=== PATIENT | male | born 1980 | race African-American/Black ===

== ENCOUNTER 2021-07-13 09:51 | Outpatient (CLI) | payer BC, SELFPAY ==
--- NOTE | ~2021-07-13 | XR_ITS ---
XR sacrum coccyx min 2V DATE: 07/13/2021 10:15 INDICATION: Low back pain TECHNIQUE: AP, angled AP and lateral views of sacrum and coccyx COMPARISON: None FINDINGS: No fracture or bone destruction of the sacrum or coccyx is evident. Normal alignment at the pubic symphysis and sacroiliac joints. IMPRESSION: Negative Reviewed, dictated and finalized at location A. IMPRESSION: Negative
== END 2021-07-13 09:52 ==
PROVIDERS: PCP Nurse Practitioner Family; Visit Provider Nurse Practitioner Family
DX: M54.50 Low back pain, unspecified (principal)
CPT/HCPCS: 72220

== ENCOUNTER 2021-08-13 01:40 | Day surgery (SDC) | payer BC, SELFPAY ==
[2021-08-06 09:09] VITALS: BMI 34.0
--- NOTE | 2021-08-06 09:19 | PC.NURSE ---
Report to the Outpatient Waiting Room, entrance under the green pavilion located off [facility], at time 1000 on date 08/13/21. OR Time: 1200. - You and your visitor will be asked a series of questions to screen for COVID 19 for your protection. - A mask is required within the hospital. - Only one visitor is allowed at this time. Patient visitors will be guided where to wait when not with patient. Preoperative COVID Testing Requirements: No COVID Test needed if: (proof is required; if not received patient will have Rapid Test prior to entry) - Patient has received COVID Vaccine at least 14 days prior to procedure date or - Patient has positive COVID test result within last 90 days of surgery date. COVID Test needed if above criteria is not met If not COVID vaccinated a COVID test must be conducted within 72 hours of surgery and patient is asked to isolate self from time of testing until procedure. You will go to the [facility] for your COVID testing. The [facility] site is located at the corner of [address] [facility]. You will only be called if COVID results are positive and your surgeon may reschedule your elective surgery date. Patients may have clear liquids (water, carbonated beverages, clear teas, apple juice) until 3 hours prior to surgery with a maximum of 20 ounces. - No food from midnight until time of surgery - Infants may have breast milk until 4 hours before surgery, infant formula 6 hours prior to surgery. - Children will be allowed to drink immediately following surgery. If applicable, please bring a bottle or sippy cup to assist with drinking. Juice, water, soda, and popsicles are readily available. For infants on formula, please bring formula the day of surgery. Pacifiers are allowed. Take the following medications with a SIP of water the morning of surgery: N/A Medications to discontinue per physician: N/A Date to take last dose: N/A Please no make-up, nail malay, hairspray, perfume, deodorant, or body powder the day of surgery. No jewelry (including any body piercings) or valuables the day of surgery, leave them at home. Please take a shower or bath the night before, or the morning of, surgery with an antibacterial soap. Wear comfortable, loose fitting clothing. Children are encouraged to wear pajamas. - Jewelry must be removed prior to entering the operating room. Rings and piercings that are not removed may be cut off. - The hospital will not accept responsibility for valuables. - Please leave all valuables, including medications, at home the day of surgery. If you are going home after surgery, a licensed route delivery driver must drive you home. - NO public transportation without another adult. - We recommend that an adult stay with you for 24 hours following discharge. - We also recommend that you do not drive, make important decision, drink alcoholic beverages, or take any drugs that were not prescribed by your health care provider for at least 24 hours after your discharge time. For Pediatric surgeries, we recommend two adults accompany the child home (only one inside the building at this time). Follow any additional instructions given to you from your surgeon. Telephone instructions given to KAYLEE SINGER and asked if any additional questions and then verbalized understanding. Patient advised to call surgeon office or pre surgery nurse liaison [phone] if any additional questions.
[2021-08-13] VITALS (10 sets, daily range): BP systolic 103–140; BP diastolic 61–88; PULSE 56–77; RESP 14–20; TEMP 36.4; O2SAT 94–100
[2021-08-13] MEDS: LACTATED RINGERS 1,000 ML 30 ML IV CONT ×2 (10:45→14:15)
[2021-08-13] MEDS: KETOROLAC 15 MG/ML VIAL (*BKC) IV PUSH (10:45)
[2021-08-13] MEDS: ACETAMINOPHEN 500 MG TABLET 1000 MG PO (10:45)
--- NOTE | 2021-08-13 11:29 | P.PNAN_ITS ---
Anes - Initial Pre Proc Eval Procedure: Operation Date: 08/13/21 12:00 Proposed Procedures p Laparoscopic Umbilical Hernia Repair with Mesh, DaVinci Assisted - Matthew Pizano DO Date/Time: 08/13/21 11:29 Surgeon: Matthew Pizano DO Pre Op Diagnosis: Umbilical Hernia Patient Data Age: 41 Gender: M Height: 1.83 m Weight: 113.3 kg Last Vital Signs Temp 36.4 C L 08/13/21 10:29 Pulse 76 08/13/21 10:29 Resp 18 08/13/21 10:29 BP 133/88 08/13/21 10:29 Pulse Ox 98 08/13/21 10:29 Allergies Allergy/AdvReac Type Severity Reaction Status Date / Time No Known Allergies Allergy Mild Verified 08/13/21 10:25 Home Medications Medication Instructions Recorded Confirmed Type cetirizine [Zyrtec] 10 mg PO DAILY 08/06/21 08/13/21 History Patient hx anesthesia problems: none Family hx anesthesia problems: none Results Review: All pre-operative results and documents have been reviewed as part of the pre-operative evaluation. [facility] Family History Family History Mother Diabetes mellitus Grandparent Alcoholism Social History Social History Smoking status: Never smoker Alcohol intake: never Substance use: never Substance use type: does not use Living arrangements: with family Spiritual care concerns: Yes (NO BLOOD PRODUCTS) Anes - Eval Final PreProcedure Day of Procedure 08/13/21 11:29 Patient weight: overweight Heart: regular rate and rhythm Lungs: clear to auscultation Airway: Mallampati scale class II Neurological: alert and oriented Last oral intake: >/= 8 hours ASA classification: III Emergent: no Anesthetic plan: proceed Anesthesia type and monitoring: general ETT and standard monitoring Results Review: All pre-operative results and documents have been reviewed as part of the pre-operative evaluation. Informed Consent: The patient's anesthetic plan and its attendant risks and benefits were discussed with the patient/family/POA. Questions were solicited and answers provided to the satisfaction of the patient/family/POA.
--- NOTE | 2021-08-13 11:47 | WPDHPUPDATE1 ---
History and Physical Update Update Date/Time: 08/13/21 11:47 History and Physical has been reviewed, including an updated exam of the patient. There are NO changes in the patient's condition. Risks, benefits, and alternatives have been discussed and questions answered. Patient agrees to proceed with procedure.
[2021-08-13] MEDS: ceFAZolin 2 GM/D5W 50 ML 2 GM/50 ML BAG IVPB (12:03)
--- NOTE | 2021-08-13 14:05 | W.PM.PROC2 ---
Procedure Note - Detailed Date of Procedure 08/13/21 Pre-op Diagnosis Umbilical Hernia Post-op Diagnosis other (Umbilical and ventral hernia) Procedure Performed Laparoscopic Umbilical and Ventral Hernia Repair with Mesh, da Francesca assisted Surgeon Matthew Pizano DO Anesthesia general and local (Exparel) Indications This is a 41-year-old man who noticed a bulge at his umbilicus over the past couple years. This has become slightly larger over time, and recently he was noticing more discomfort with activity. A 2 cm umbilical hernia was identified on physical exam. Discussions were made with the patient about treatment options and decision was made to proceed with laparoscopic umbilical hernia repair with mesh, de Francesca assisted. Findings Upon entering the abdomen laparoscopically, I identified a 2 cm umbilical hernia. There was some preperitoneal fat around the fascia and the falciform ligament was coming up close to this area. The preperitoneal fat, hernia sac, and falciform ligament was taken down using scissors with electrocautery. While doing this I a identified another ventral hernia about 2 cm cephalad to the umbilical hernia. This 1 was also measuring about 2 cm wide. The falciform ligament was taken down far enough cephalad to allow for the hernia repair and mesh placement. I then closed the fascia of both hernia defects using an 0 Stratafix running absorbable suture. I then chose a Ventralight ST 15 cm x 10 cm mesh to repair the defect. The mesh was secured in place using 2 0 V lock running absorbable suture around the entire perimeter. The hernia sac and preperitoneal fat was excised and removed with an Endo-Catch bag. Description of Procedure Procedure as well as risks, benefits, and alternatives were discussed with the patient. Written consent was obtained and placed in chart prior to procedure. Patient was brought back to surgical suite. He was placed supine on operating table. Time-out was done to confirm patient and procedure. He was then intubated by the anesthesia department. A bump was placed under his left hip, and the bed was flexed slightly to extend the space between his costal margin and iliac crest. His abdomen was prepped and draped in sterile fashion using chlorhexidine prep. A 5 millimeter incision was made in the left upper quadrant, and a 5 millimeter Optiview trocar was advanced through the abdominal layers under direct visualization. Once inside the abdominal cavity, carbon dioxide insufflation was used to create a pneumoperitoneum. His abdomen was inspected. An 8 millimeter incision was made in the left lower quadrant, and an 8 millimeter robotic trocar was placed under direct visualization. Another 8 millimeter incision was made in the left lateral abdomen, and an 8 millimeter robotic trocar was placed under direct visualization. Exparel was infiltrated along the lateral abdominal brady to perform a transversus abdominis plane block bilaterally. The 5 millimeter port was removed, the incision was extended to 12 millimeters, and a 12 millimeter air seal port was placed under direct visualization. A Gio-Aguirre cone was also used to place an 0-Vicryl simple interrupted suture at this trocar site. The robotic arms were brought up to the patient's bedside and secured to the ports. The camera and instruments were inserted, and I then moved over to the robotic console and took control of the camera and instruments. After careful thorough inspection of the abdominal cavity, I began my dissection at the hernia. The preperitoneal fat was excised to clear the fascia around the hernia defect. The falciform ligament was then also taken down using robotic scissors with electrocautery. The preperitoneal fat was excised and placed in an Endo-Catch bag and removed through the 12 mm port. I then identified another ventral hernia about 2 cm superior to the umbilical hernia while clearing the falciform ligament and peritonea
[2021-08-13] MEDS: oxyCODONE HCL (*CRX) 5 MG TAB IR PO (16:13)
== END 2021-08-13 16:40 | disposition home or self-care (01) ==
PROVIDERS: PCP Nurse Practitioner Family; Visit Provider Surgery
PROC: (CPT 49652; principal; 2021-08-13 12:00)
DX: K43.9 Ventral hernia without obstruction or gangrene (principal); K42.9 Umbilical hernia without obstruction or gangrene
CPT/HCPCS: 49652; S2900; A9270; C9290; J0330; J0690; J1100; J1170; J1885; J2250; J2405; J2704; J3010; J7120

== ENCOUNTER 2022-04-04 09:04 | Outpatient (CLI) | payer BC, SELFPAY ==
--- NOTE | ~2022-04-04 | CT_ITS ---
EXAMINATION: CT abdomen wo con DATE: 04/04/2022 09:24 INDICATION: Status post incisional hernia repair. Evaluate for recurrent hernia. TECHNIQUE: Computed tomography (CT) of the abdomen was performed without intravenous contrast. Automa starla exposure control and iterative reconstruction technique were employed. Exam dose: 725.61 mGy-cm total exam DLP. COMPARISON: None. FINDINGS: The lung bases are clear. Normal heart size. No pericardial or pleural effusion. The liver, gallbladder, bile ducts, spleen, pancreas and pancreatic duct are unremarkable. Normal morphology of the adrenal glands. No renal mass lesion or urinary tract calculus or hydroureteronephrosis. Normal caliber of the abdominal aorta. No intraperitoneal or retroperitoneal mass lesion or adenopath y or ascites. There is increased density of the mesenteric fat indicative of mesenteric panniculitis. There is an umbilical area ventral midline hernia containing fat and nonobstructed small bowel. The hernia defect measures up to 5.4 cm vertical and 5 cm transverse dimension. Degenerative spurring of the lower thoracic and to a lesser extent upper and mid lumbar spine. No montse picious osteolytic or osteosclerotic lesions. IMPRESSION: Umbilical area approximately 5.4 cm vertical and 5 cm transverse dimension ventral fat a nd small bowel containing hernia, without strangulation or obstruction Mesenteric panniculitis Reviewed, dictated and finalized at Location [facility]. Reviewed, dictated and finalized at location A. IMPRESSION: Umbilical area approximately 5.4 cm vertical and 5 cm transverse d imension ventral fat and small bowel containing hernia, without strangulation o r obstruction Mesenteric panniculitis
== END 2022-04-04 09:05 ==
PROVIDERS: PCP Nurse Practitioner Family; Visit Provider Surgery
DX: K43.2 Incisional hernia without obstruction or gangrene (principal); K65.4 Sclerosing mesenteritis
CPT/HCPCS: 74150

== ENCOUNTER 2022-04-30 01:26 | Day surgery (SDC) | payer BC, SELFPAY ==
[2022-04-23 10:09] VITALS: BMI 34.3
--- NOTE | 2022-04-23 10:15 | PC.NURSE ---
Report to the Outpatient Waiting Room, entrance under the green pavilion located off [facility], at time 0730 on date 04/30/22. OR Time: 0930. - You and your visitor will be asked a series of questions to screen for COVID 19 for your protection. - Only one visitor is allowed at this time. - The patient visitor is requested to leave or wait in car when not with patient. - A mask is required within the hospital. Patients may have clear liquids (water, carbonated beverages, clear teas, apple juice) until 3 hours prior to surgery with a maximum of 20 ounces. - No food from midnight until time of surgery Take the following medications with a SIP of water the morning of surgery: NONE Medications to discontinue per physician: N/A Date to take last dose: N/A Please no make-up, nail jordanian, hairspray, perfume, deodorant, or body powder the day of surgery. No jewelry (including any body piercings) or valuables the day of surgery, leave them at home. Please take a shower or bath the night before, or the morning of, surgery with an antibacterial soap (HIBICLENS). Wear comfortable, loose fitting clothing. - Jewelry must be removed prior to entering the operating room. Rings and piercings that are not removed may be cut off. - The hospital will not accept responsibility for valuables. - Please leave all valuables, including medications, at home the day of surgery. If you are going home after surgery, a licensed hearse driver must drive you home. - NO public transportation without another adult. - We recommend that an adult stay with you for 24 hours following discharge. - We also recommend that you do not drive, make important decision, drink alcoholic beverages, or take any drugs that were not prescribed by your health care provider for at least 24 hours after your discharge time. Follow any additional instructions given to you from your surgeon. If you or anyone in your household have experienced Covid symptoms in the past week, please notify your surgeon or the nurse liaison at the phone number below for possible testing. Telephone instructions given to PT - KAYLEE SINGER and asked if any additional questions and then verbalized understanding. Patient advised to call surgeon office or pre surgery nurse liaison [phone] if any additional questions.
--- NOTE | 2022-04-29 15:23 | WPDANESEPPF ---
Anes - Initial Pre Proc Eval Procedure: Operation Date: 04/30/22 09:30 Proposed Procedures p Laparoscopic Recurrent Ventral Hernia Repair with Mesh, Davinci Assisted - Matthew Pizano DO Date/Time: 04/29/22 15:23 Surgeon: Matthew Pizano DO Pre Op Diagnosis: reducible recurrent ventral hernia Patient Data Age: 42 Gender: M Height: 1.83 m Weight: 114.76 kg Allergies Allergy/AdvReac Type Severity Reaction Status Date / Time No Known Allergies Allergy Mild Verified 04/23/22 10:08 Home Medications Medication Instructions Recorded Confirmed Type cetirizine 10 mg tablet (Zyrtec) 10 mg PO DAILY 08/06/21 04/23/22 History Patient hx anesthesia problems: none Family hx anesthesia problems: none Results Review: All pre-operative results and documents have been reviewed as part of the pre-operative evaluation. [facility] Surgical History Surgical History History of umbilical hernia repair 08/13/21 Laparoscopic Umbilical and Ventral Hernia Repair with Mesh, da Francesca assisted Family History Family History Mother Diabetes mellitus Grandparent Alcoholism Social History Social History Smoking status: Never smoker Alcohol intake: never Substance use: never Substance use type: does not use Living arrangements: with family Spiritual care concerns: Yes (NO BLOOD PRODUCTS) Anes - Eval Final PreProcedure Day of Procedure 04/29/22 15:23 Patient weight: obese Heart: regular rate and rhythm Lungs: clear to auscultation Airway: Mallampati scale class II Neurological: alert and oriented Last oral intake: >/= 8 hours ASA classification: II Emergent: no Anesthetic plan: proceed Anesthesia type and monitoring: general ETT and standard monitoring Results Review: All pre-operative results and documents have been reviewed as part of the pre-operative evaluation. Informed Consent: The patient's anesthetic plan and its attendant risks and benefits were discussed with the patient/family/POA. Questions were solicited and answers provided to the satisfaction of the patient/family/POA.
[2022-04-30] VITALS (21 sets, daily range): BP systolic 103–157; BP diastolic 64–106; PULSE 51–77; RESP 13–20; TEMP 36.1–36.9; O2SAT 94–100
[2022-04-30] MEDS: ACETAMINOPHEN 500 MG TABLET 1000 MG PO (08:30)
[2022-04-30] MEDS: KETOROLAC 15 MG/ML VIAL (*BKC) IV PUSH ×2 (08:30→14:57)
[2022-04-30] MEDS: LACTATED RINGERS 1,000 ML 30 ML IV CONT ×2 (08:30→12:12)
--- NOTE | 2022-04-30 08:52 | WPDHPUPDATE1 ---
History and Physical Update Update Date/Time: 04/30/22 08:52 History and Physical has been reviewed, including an updated exam of the patient. There are NO changes in the patient's condition. Risks, benefits, and alternatives have been discussed and questions answered. Patient agrees to proceed with procedure.
--- NOTE | 2022-04-30 08:52 | PM.IMHP ---
H&P: HPI History of Present Illness Date/Time: 04/30/22 08:52 Chief Complaint: recurrent ventral hernia Narrative: 42 yo man presents for recurrent ventral hernia repair. He denies any changes since seen in office. Review of Systems Review of Systems: All systems reviewed & are unremarkable except as noted in HPI and below Constitutional: Constitutional: Denies chills, Denies fever(s), Denies headache(s) and Denies weight loss Eyes: Eyes: Denies change in vision ENT: Denies dizziness, Denies headache(s), Denies neck mass and Denies throat swelling Cardiovascular: Cardiovascular: Denies chest pain, Denies lightheadedness and Denies dyspnea Respiratory: Respiratory: Denies cough, Denies dyspnea and Denies wheezing Gastrointestinal: Gastrointestinal: Denies abdominal pain, Denies change in bowel habits, Denies nausea and Denies vomiting Genitourinary: Genitourinary: Denies hematuria and Denies dysuria Musculoskeletal: Musculoskeletal: Reports as per HPI Integumentary/Breasts: Skin/Breast: Reports as per HPI Neurologic: Denies dizziness and Denies headache(s) Allergic/Immunologic: Allergic/Immunologic: Denies throat swelling and Denies wheezing PMF Surgical History Surgical History History of umbilical hernia repair 08/13/21 Laparoscopic Umbilical and Ventral Hernia Repair with Mesh, da Francesca assisted Family History Family History Mother Diabetes mellitus Grandparent Alcoholism Social History Social History Smoking status: Never smoker Alcohol intake: never Substance use: never Substance use type: does not use Living arrangements: with family Spiritual care concerns: Yes (NO BLOOD PRODUCTS) Meds Home Medications and Allergies Home Medications Medication Instructions Recorded Confirmed Type cetirizine 10 mg tablet (Zyrtec) 10 mg PO DAILY 08/06/21 04/23/22 History Allergies Allergy/AdvReac Type Severity Reaction Status Date / Time No Known Allergies Allergy Mild Verified 04/23/22 10:08 Vital Signs Vital Signs - 24 hr 04/30/22 08:41 Temperature 36.1 C L Pulse Rate 57 L Respiratory Rate 14 Blood Pressure 131/80 Pulse Oximetry 100 Oxygen Delivery Room Air Exam Const: General: no acute distress and alert Orientation/consciousness: patient oriented x3 HENMT: Head: normocephalic and atraumatic Ears: hearing grossly normal bilaterally General nose exam: Normal nares present Mouth: Yes Normal oral and palatal mucosa present Eyes: Periorbital: periorbital findings normal Sclera: sclerae normal EOM: EOMs intact bilaterally Neck: Neck: normal visual inspection, no lymphadenopathy and trachea midline Chest: Chest palpation & inspection: normal inspection of the chest Resp: Effort & Inspection: normal respiratory effort Auscultation: clear to auscultation bilaterally Cardio: Jugular venous distension: no JVD Rate: regular rate Rhythm: regular rhythm Heart sounds: S1 normal heart sound present and S2 normal heart sound present Peripheral pulses: Peripheral pulses 2+ throughout GI: Inspection: normal to inspection GI Palp: Yes Soft to palpation, No Tenderness to palpation present (GI), No Guarding due to palpation present (GI), Yes Hernia present (recurrent ventral hernia superior to umbilicus) and No Rebound tenderness present Percussion: Yes normal to percussion Auscultation: normal bowel sounds : General: Yes no CVA tenderness Back/Spine/Pelvis: Back: no CVA tenderness Neuro: General: patient oriented x3, no focal motor deficits and CN's II-XI intact bilaterally Cognition (Neuro): normal cognition Speech: normal speech Motor exam (neuro): 5/5 motor strength present throughout Extrem: General: capillary refill normal and no clubbing, cyanosis or edema Assessment and Plan A
[2022-04-30] MEDS: ceFAZolin 2 GM/D5W 50 ML 2 GM/50 ML BAG IVPB (09:27)
--- NOTE | 2022-04-30 12:15 | W.PM.PROC2 ---
Procedure Note - Detailed Date of Procedure 04/30/22 Pre-op Diagnosis reducible recurrent ventral hernia Post-op Diagnosis Same Procedure Performed 1. Laparoscopic Recurrent Ventral Hernia Repair with Mesh, da Francesca assisted 2. Laparoscopic removal of mesh foreign body Surgeon Matthew Pizano, DO Anesthesia General and Local (Exparel) Indications This is a 42-year-old man who presented with a recurrent ventral hernia. He underwent robotic assisted laparoscopic ventral hernia repair with mesh on 08/13/2021. He healed appropriately and was released back to full activity after 6 weeks, but within a couple months after being released he started noticing a recurrent bulge above his umbilicus. A CT was performed which showed evidence of a recurrent ventral hernia. Discussions were made with the patient about treatment options and decision was made to proceed with robotic assisted laparoscopic recurrent ventral hernia repair with mesh. Findings Laparoscopic recurrent ventral hernia repair with mesh was performed. Upon entering the abdomen laparoscopically, there were some omental adhesions up to the old mesh. Once these adhesions were taken down, I was able to visualize the old mesh that was protruding up into the recurrent ventral hernia. The mesh was excised and sent to the lab for pathology. The hernia defect measured 4 cm wide by 6 cm vertically. The fascia was reapproximated using #1 Stratafix running absorbable suture starting at the superior and inferior margins and overlapping and meeting in the middle. A Ventralight ST 20 cm x 15 cm mesh was then placed intra-abdominally and was secured to the abdominal wall circumferentially with 2-0 V lock running absorbable sutures. Description of Procedure Procedure as well as risks, benefits, and alternatives were discussed with the patient. Written consent was obtained and placed in chart prior to procedure. Patient was brought back to surgical suite. He was placed supine on operating table. Time-out was done to confirm patient and procedure. He was then intubated by the anesthesia department. A bump was placed under his left hip, and the bed was flexed slightly to extend the space between his costal margin and iliac crest. His abdomen was prepped and draped in sterile fashion using chlorhexidine prep. A 5 millimeter incision was made in the left upper quadrant, and a 5 millimeter Optiview trocar was advanced through the abdominal layers under direct visualization. Once inside the abdominal cavity, carbon dioxide insufflation was used to create a pneumoperitoneum. His abdomen was inspected. An 8 millimeter incision was made in the left lower quadrant, and an 8 millimeter robotic trocar was placed under direct visualization. Another 8 millimeter incision was made in the left lateral abdomen, and an 8 millimeter robotic trocar was placed under direct visualization. Exparel was infiltrated along the lateral abdominal brady to perform a transversus abdominis plane block bilaterally. The 5 millimeter port was removed, the incision was extended to 12 millimeters, and a 12 millimeter air seal port was placed under direct visualization. A Gio-Aguirre cone was also used to place an 0-Vicryl simple interrupted suture at this trocar site. The robotic arms were brought up to the patient's bedside and secured to the ports. The camera and instruments were inserted, and I then moved over to the robotic console and took control of the camera and instruments. After careful thorough inspection of the abdominal cavity, I began my dissection at the hernia. The adhesions were taken down using scissors with electrocautery. The mesh was then excised from the abdominal wall using scissors with electrocautery. I then measured the hernia size. The hernia measured 4 cm wide by 6 cm vertically The fascia was closed using an 1-Stratafix running suture in a vertical fashion. A Ventralight ST 20 cm x [address] then [address]
[2022-04-30] MEDS: fentaNYL CITRATE INJ (*CRX) 100 MCG/2 ML VIAL 25 MCG IV PUSH ×8 (12:21→14:45)
[2022-04-30] MEDS: oxyCODONE HCL (*CRX) 5 MG TAB IR PO (14:06)
[2022-04-30] MEDS: HYDROmorphone HCL INJ (*CRX) 1 MG/ML SYR 0.5 MG IV PUSH ×2 (15:00→16:55)
[2022-04-30] MEDS: IBUPROFEN 600 MG TABLET PO (18:46)
[2022-04-30] MEDS: LACTATED RINGERS 1,000 ML 100 ML IV CONT (18:50)
[2022-04-30] MEDS: oxyCODONE/ACETAMINOPHEN (*CRX) 5-325 MG TABLET 2 TABLET PO ×2 (19:29→23:26)
--- NOTE | 2022-04-30 19:51 | ADMGEN ---
This patient, Paul Prieto, was admitted to Medical Room 343-01. Patient/family oriented to hospital policies and general routines including ID bracelet, bed and alarms, visiting hours, pain management, procedures, bathroom and other care routines, personal items, smoking policy, room service/diet, and visiting hours. Information on how to activate the Rapid Response Team has been discussed. Patient/Family are encouraged to report perceived risks to care and to ask questions if they do not understand what they are told or what they should do. PT ARRIVED ON FLOOR AT 1740. THIS INFORMATION GIVEN NOW
[2022-05-01] MEDS: IBUPROFEN 600 MG TABLET PO ×3 (00:54→12:16)
[2022-05-01 02:59] VITALS: BP 141/73; PULSE 77; RESP 20; TEMP 36.6; O2SAT 97
[2022-05-01] MEDS: oxyCODONE/ACETAMINOPHEN (*CRX) 5-325 MG TABLET 2 TABLET PO ×2 (04:28→13:14)
[2022-05-01 04:57] VITALS: BP 115/77; PULSE 58; RESP 18; TEMP 36.6; O2SAT 100
--- NOTE | 2022-05-01 05:22 | PC.NURSE ---
PT STATED EARLIER THAT HE SETS ALARM FOR PAIN MEDS
[2022-05-01] MEDS: LORATADINE 10 MG TABLET PO (08:52)
--- NOTE | 2022-05-01 10:19 | WPDANESPN ---
Anes - Prog Note Post-Op Date/Time: 05/01/22 10:19 Cardiovascular status: normal Respiratory status: normal Airway patency: baseline Mental status: baseline Post-Op hydration status: normal Vital Signs: Last Vital Signs Temp 97.8 F 05/01/22 04:57 Pulse 58 L 05/01/22 04:57 Resp 18 05/01/22 04:57 BP 115/77 05/01/22 04:57 Pulse Ox 100 05/01/22 04:57 O2 Del Method Room Air 04/30/22 17:14 O2 Flow Rate 6 04/30/22 12:40 Pain Score (VAS): 3 I/O: Intake & Output 04/30/22 05/01/22 05/01/22 23:59 07:59 15:59 Intake Total 1000 790 Balance 1000 790 Patient Feedback: Patient satisfied with anesthetic care.
--- NOTE | 2022-05-01 11:33 | PM.DS ---
DS: Admitting Diagnosis Discharge Date 05/01/2022 Admitting Diagnosis recurrent ventral hernia DS: Discharge Diagnosis Discharge Diagnosis (1) Recurrent ventral hernia: Code(s): K43.2 - Incisional hernia without obstruction or gangrene Status: Acute DS: Summary Hospital Course Reason for hospitalization: postoperative pain, status post recurrent ventral hernia repair Hospital Course: this is a 42-year-old man who underwent robotic assisted laparoscopic recurrent ventral hernia repair with mesh on 04/30/2022. Patient was experiencing severe pain postoperatively and pain was not controlled with oral pain medications in recovery. He was placed in outpatient extended recovery for continued observation and pain control with p.o. and IV pain meds. His activity was gradually advanced as tolerated. On postop day 1 pain was better controlled and patient was able to get up with minimal assistance. He was remaining hemodynamically stable. He was discharged on 05/01/2022. Status at Discharge Functional status at discharge: independent ambulation Overall status at discharge: patient is progressing back to baseline Time Spent with Patient Time attestation: Total time spent providing and/or coordinating discharge services: Exam Const: General: comfortable and no acute distress Cardio: Rate: regular rate Rhythm: regular rhythm Heart sounds: S1 normal heart sound present and S2 normal heart sound present GI: Inspection: non-distended and incision ( Intact with glue) GI Palp: Yes Soft to palpation, Yes Tenderness to palpation present (GI) ( hernia repair site and incisional) and No Guarding due to palpation present (GI) Auscultation: normal bowel sounds DS: Data Data Completed and Pending Pending studies at discharge: Pending at discharge 04/30/22 10:26 Surgical [PTH] Routine Discharge Plan Discharge Patient Disposition: Home, Self-Care Discharge Instructions: DISCHARGE INSTRUCTION SHEET FOR HERNIA, GALLBLADDER AND APPENDIX SURGERIES DR. CYR PATIENT TO TAKE HOME 1. May shower in 24 hours, no soaking in bath x 2weeks. 2. Call office for: Wound increasingly painful or bleeding Vomiting Fever of greater than 101 degrees 3. If no bowel movement for three days, take 1 oz. (30 ml) Milk of Magnesia or MiraLax 17g 1 to 2 times daily. 4. No heavy lifting > 10-15 pounds x 8-10 weeks for hernia repairs. 5. No driving for 3 days or while taking narcotic pain medications. 6. Ice to surgical site for 48 hours (30 min on, then 30 min off). 7. Up walking 10-30 minutes three times per day. 8. Resume previous home medications. 9. Follow-up 10-14 days in office for wound check or as previously scheduled. ([id number]) 10. Oral pain medications prescription to be sent to pharmacy. Take Tylenol 500mg every 6 hours and Ibuprofen 600mg every 6 hours for the first 2 days, then as needed. 11. NUTRITION: Start out by drinking fluids and increase your diet as tolerated. If you experience nausea, try dry toast, crackers, and 7-UP. If nausea or vomiting persists, contact your surgeon?s office. 12. Abdominal Hernias-if sent home with abdominal binder, wear for the first 2 weeks (may remove to shower or at night to sleep). Skin Adhesive Care Skin adhesive is medical glue used to close wounds. It is a substitute for michelle and stitches. Skin adhesive wound closures take less time and do not require anesthesia. You have less pain and a lower risk of infection than with michelle or stitches. Skin adhesive will fall off after the wound is healed. Discharge instructions: Keep wound clean and dry. You can shower 24 hours after adhesive is applied but do not soak in bath or hot tub until wound is healed or provider approves. Do not pick or scrub your wound or the adhesive. This can make your wound reopen. ?Do not apply ointments to your wound. The
== END 2022-05-01 13:45 | disposition home or self-care (01) ==
LOC: ANHSURGERY 12:43 → ANH3MED 17:16
PROVIDERS: PCP Nurse Practitioner Family; Visit Provider Surgery
PROC: (CPT 49656; principal; 2022-04-30 09:30)
DX: K43.2 Incisional hernia without obstruction or gangrene (principal); K66.0 Peritoneal adhesions (postprocedural) (postinfection); E66.9 Obesity, unspecified; Z68.33 Body mass index [BMI] 33.0-33.9, adult
CPT/HCPCS: 49656; S2900; 88300; A9270; C1781; C9290; J0690; J1100; J1170; J1885; J2250; J2405; J2704; J2710; J3010; J7030; J7120

== ENCOUNTER 2023-03-11 16:21 | Outpatient (CLI) | payer BC, SELFPAY ==
--- NOTE | ~2023-03-11 | XR_ITS ---
EXAM: XR knee RT 3V, XR knee LT 3V DATE: 03/11/2023 16:49 HISTORY: PAIN IN RIGHT KNEE . COMPARISON: None available. FINDINGS: Normal mineralization. No fracture or dislocation. No lytic or blastic lesion. Mild bilate ral medial joint space narrowing. Moderate bilateral tricompartmental osteophytosis. Marked bilateral quadriceps and patellar enthesopathy. No erosion or periosteal change. Soft tissues within normal li mits. IMPRESSION: Moderate bilateral knee osteoarthritic arthritis. Marked bilateral quadriceps and patella r enthesopathy. Reviewed, dictated and finalized at location K. IMPRESSION: Moderate bilateral knee osteoarthritic arthritis. Marked bilateral quadriceps and patellar enthesopathy.
== END 2023-03-11 16:22 ==
LOC: MICIMG 16:23
PROVIDERS: PCP Nurse Practitioner Family; Visit Provider Nurse Practitioner Family
DX: M17.0 Bilateral primary osteoarthritis of knee (principal)
CPT/HCPCS: 73562